=== PATIENT | male | born 1935 | race Caucasian/White ===

== ENCOUNTER 2017-11-05 14:34 | Inpatient (IN) | payer OTHER ==
[2017-11-02 03:22] VITALS: BMI 19.9
[2017-11-05] MEDS ORDERED: ULTRAM PO PRN (14:57)
[2017-11-05] MEDS ORDERED: NITROSTAT SL PRN (14:57)
[2017-11-05] MEDS ORDERED: ATIVAN PO PRN ×2 (14:57→21:00)
[2017-11-05] MEDS: COMBIVENT RESPIMAT INHAL SPRAY IH SCH ×2 (16:13→17:19)
--- NOTE | 2017-11-05 16:17 | RS.OTINEVL ---
Subjective - Patient information Date of Evaluation: 11/05/17 Date of Arrival on Unit: 11/05/17 Usual Living Arrangement: With Spouse Living Arrangement Comments: lives alone with , pt was walking with a quad cane at home. He really thinks he likes the rolling walker better. Pt has a house and his takes care of him. Medical History: Hypertension, COPD, Arthritis Medical History Comments:: Irregular Heart beat, Cyst removed from his throat, B cataracts, hx of kidney stones, spleenectomy, colon resection, TURP, Lung BX, Prostate, T& A. Chronic bronchitis, asthma, hypercholesterolemia Surgical History Comments:: TURP, Lung Bx, Prostate, T&A, Cyst removed from throat, Bilateral cataracts, spleenectomy Subjective Information/ Patient Comments:: "I get really short of breath." "My legs are getting weak." - Level of function Prior to this admission, the patient could do the following:: Partially Dependent Ambulation Abilities prior to this admission: Pt reports he has not been able to do much in the last year. Patient reports he gets too short of breath and his takes care of him. Current Level of Function: Partially Dependent Current Equipment Used at Home: Quad cane at home. Oxygen. Pain Assessment - Pain Pain Score: 0 Interventions - Objective Patient Orientation: Person, Place, Situation Current Interventions: IV's, Oxygen, Telemetry Observation: Pt looks very weak and would benefit from occupational therapy to increase his independence of self care. Interventions - ROM Right Upper Extremity AROM: WFL's Left Upper Extremity AROM: WFL's - Strength Right Upper Extremity Strength: Mild Weakness Left Upper Extremity Strength: Mild Weakness - Sensation Right Upper Extremity Sensation: Intact/Normal Left Upper Extremity Sensation: Intact/Normal Balance - Sitting Balance Static Sitting Balance: Fair Dynamic Sitting Balance: Fair - Standing Balance Static Standing Balance: Poor Dynamic Standing Balance: Poor ADL Skills - Self Feeding Self Feeding: Independent - Grooming Grooming: Min Assist - Bathing Bathing UE: Min Assist Bathing LE: Max Assist - Dressing Dressing UE: Min Assist Dressing LE: Max Assist - Toilet Management Toileting Management: Min Assist Functional Mobility - Bed Mobility Rolling R/L: Independent Scooting: Independent Supine to Sit: Supervision Sit to Supine: Supervision - Transfers Sit to Stand: CGA, Min Assist Stand to Sit: CGA Stand Pivot Transfers: Min Assist - Ambulation Weight Bearing Status: FWB Assistive Device Used: Standard Walker Assistance needed with Ambulation: Min Assist, 2 person assist Comments:: Pt has an IV pole and O2 tank. - Safety Awareness Safety Awareness: Fair UZMA INDEX SCORE: 56 Additional Treatment Performed - Additional units charged ADL: 15 - Time with patient Length of Evaluation: 15 Total treatment time: 30 Activities Do you enjoy playing games?: Yes Would you be interested in leaving your room for activities?: Yes Would you enjoy group activities?: Yes Do you have difficulty with your vision?: No What types of things do you enjoy doing? Any Hobbies?: Reading Patient Interests:: Reading Books/Magazines, Visiting/Socializing Patient Education Patient Education: Education of diagnosis, Home Exercise Program, Home Safety, Education of Plan of Care Teaching Recipient: Patient Teaching Methods: Discussion Assessment Problem List:: Decreased level of function, Requires training/education, Decreased safety/Risk of falls, Weakness Rehab Potential: Good Further Therapy Indicated?: Yes Candidate for Swing Bed for Therapy Services?: yes Evaluation Complexity: HISTORY: Medium, EXAM OF BODY SYSTEMS: Medium, CLINICAL DECISION MAKING: Medium Short Term Goals - Goals GOAL 1: Pt to tolerate dyn. Std. Balance for 10 minutes for self care. Goal to be met by: 11/12/17 GOAL 2: Pt to increase functional mobility CGA. Goal to be met by: 11/12/17 GOAL 3: Pt to increase BUE strength to 4/5. Goal to be met by: 11/12/17 Padded Products Inspector Trimmer Goals GOAL 1: Pt to tolerate dyn. Std. Balance for 15 minutes for self care. Goal to be met by: 11/17/17 GOAL 2: Pt to increase functional mobility Mod-I. Goal to be met by: 11/17/17 GOAL 3: Pt to increase BUE strength to 4+/5. Goal to be met by: 11/17/17 Plan Plan of Care: Therapeutic EX, Neuromuscular Re-Educ, Therapeutic Activity, Self- Care/Home Management Frequency of Treatment: 1-2 X day, as tolerated Duration of Treatment: 2 Weeks Anticipated Discharge Destination: Home Treatment Diagnosis (ICD 10 Codes): M62.81 Muscle weakness, Z74.0 Reduced mobility, Z74.1 Need for assistance with personal care. Has the Physician been added for Co-signature?: Yes
--- NOTE | 2017-11-05 16:40 | RS.PTINEVL ---
Subjective - Patient information Date of Evaluation: 11/05/17 Date of Arrival on Unit: 11/05/17 (acute care 11/02/17) Admitted From:: In-House Transfer Diagnosis: MEHNAZ pneumonia, COPD exacerbation Usual Living Arrangement: With Spouse Living Arrangement Comments: pt lives with , uses quad cane. Lives in home with 1-2 steps without rail Home Environment: House, Stairs (few), No rail Medical History: Hypertension, CVA/TIA, COPD, Arthritis, Cancer (prostate CA) Medical History Comments:: afib, sleep apnea, R hip fx 1986, renal stones, left ventricular hypertrophy, O2 at home LATEX ALLERGY?: No Surgical History: Knee Replacement Surgical History Comments:: TURP, spleenectomy Medications: see chart Subjective Information/ Patient Comments:: pt states that he is doing better, " I need to get up and do something and get out of this bed." - Level of function Prior to this admission, the patient could do the following:: Partially Dependent Ambulation Current Level of Function: Partially Dependent Current Equipment Used at Home: Quad cane at home. Oxygen. Interventions - Objective Patient Orientation: Person, Place, Situation Current Interventions: IV's, Oxygen, Telemetry Observation: 2 liters O2 Range of Motion - ROM Right Upper Extremity AROM: WFL's Left Upper Extremity AROM: WFL's Right Lower Extremity AROM: WFL's Left Lower Extremity AROM: WFL's Muscle Strength - Muscle Strength Right Upper Extremity Strength: Mild Weakness (grossly 4-/5) Left Upper Extremity Strength: Mild Weakness (grossly 4-/5) Right Lower Extremity Strength: Mild Weakness (hip flex 4-/5, knee flex/ext 4/5 , ankle dF/PF 4/5) Left Lower Extremity Strength: Mild Weakness (hip flex 4-/5, knee flex/ext 4/5, ankle dF/PF 4/5) Sensation - Sensation Right Upper Extremity Sensation: Intact/Normal Left Upper Extremity Sensation: Intact/Normal Right Lower Extremity Sensation: Intact/Normal Left Lower Extremity Sensation: Intact/Normal Palpation Palpation Findings: None/Normal Balance - Sitting Balance and Reactions Static Sitting Balance: Good Dynamic Sitting Balance: Fair Sitting Equilibrium Reactions: Delayed Left, Delayed Right Sitting Protective Reactions: Delayed Left, Delayed Right - Standing Balance and Reactions Static Standing Balance: Poor Dynamic Standing Balance: Poor Standing Equilibrium Reactions: Delayed Left, Delayed Right Standing Protective Reactions: Delayed Left, Delayed Right Functional Mobility - Bed Mobility Rolling R/L: CGA Scooting: CGA Supine to Sit: CGA Sit to Supine: CGA - Transfers Sit to Stand: CGA Stand to Sit: CGA - Safety Awareness Safety Awareness: Good UZMA INDEX SCORE: 56 Ambulation - Ambulation Assistive Device Used: Rolling Walker Orthotic/Prosthetic Device: No Distance: 80ft Assistance needed with Ambulation: CGA, 1 person assist Quality of Ambulation: pt amb with CGA x 1 +1 for IV and O2 Gait Deviations: Forward posture, Short stride Ambulation Comments: pt amb with flexed posture, decreased step length, requires verbal cues for PLB Factors Affecting Ambulation: Decreased Balance, Breathing/O2 Saturation, Weakness, Decreased Safety, Limited Endurance Treatment time - Units charged Gait trainin - Time with patient Length of Evaluation: 18 Total treatment time: 29 Patient Education - Education Patient Education: Home Exercise Program, Education of Plan of Care Teaching Recipient: Patient Teaching Methods: Discussion Comments: discussion with patient regarding POC Assessment - Assessment Problem List:: Decreased level of function, Requires training/education, Decreased safety/Risk of falls, Weakness Rehab Potential: Good Further Therapy Indicated?: Yes Candidate for Swing Bed for Therapy Services?: pt is swing bed Evaluation Complexity: HISTORY: Medium (COPD, CVA, HTN, AFIB), EXAM OF BODY SYSTEMS: Medium (gait, strength, balance, posture), CLINICAL PRESENTATION: Medium, CLINICAL DECISION MAKING: Medium Short Term Goals GOAL #1: pt demonstrate independence with bed mobility Goal to be met by: 11/10/17 GOAL #2: Transfer sup to/from sit SBA sit to/from stand CGA Goal to be met by: 11/10/17 GOAL #3: pt amb with rwx 140ft with CGA and O2 with no LOB Goal to be met by: 11/10/17 GOAL #4: BLE strength improved to 4 to 4+/5 Goal to be met by: 11/11/17 Master Cosmetologist Goals GOAL #1: pt transfer sup to/from sit to/from stand independently Goal to be met by: 11/14/17 GOAL #2: pt amb functional household distances with SBA with no LOB Goal to be met by: 11/14/17 GOAL #3: pt demonstrate improved balance as noted by no LOB with gait Goal to be met by: 11/14/17 Plan Plan of Care: Therapeutic EX, Therapeutic Activity Other:: gait training Frequency of Treatment: 1-2 X day, as tolerated Duration of Treatment: 10 days Anticipated Discharge Destination: Home Treatment Diagnosis (ICD 10 Codes): R26.2 difficulty walking. M62.81 muscle weakness Has the Physician been added for Co-signature?: Yes
[2017-11-05] MEDS: PULMICORT 0.5 MG/2 ML NEB SCH (16:55)
[2017-11-05] MEDS ORDERED: COUMADIN PO SCH (17:00)
[2017-11-05] MEDS: PREDNISONE PO SCH (17:19)
[2017-11-05] MEDS ORDERED: PROAIR HFA IH PRN (19:44)
[2017-11-05] MEDS: SYMBICORT 160-4.5 MCG INHALER IH SCH ×2 (20:28→20:29)
[2017-11-05] MEDS: DOXY-100 100 MG in SODIUM CHLORIDE 100 ML IV SCH (20:28)
[2017-11-05] MEDS: ZOCOR PO SCH (20:28)
[2017-11-05] MEDS: SODIUM CHLORIDE 0.9%-KCL 20 MEQ 1,000 ML IV SCH (21:16)
[2017-11-05] MEDS: ROCEPHIN 1 GM in SODIUM CHLORIDE 50 ML IV SCH (21:56)
[2017-11-06] MEDS: PULMICORT 0.5 MG/2 ML NEB SCH ×2 (05:30→16:58)
[2017-11-06] MEDS ORDERED: COMBIVENT RESPIMAT INHAL SPRAY IH PRN (08:33)
[2017-11-06] MEDS ORDERED: DIGOXIN PO SCH (09:00)
[2017-11-06] MEDS: SYMBICORT 160-4.5 MCG INHALER IH SCH (09:17)
[2017-11-06] MEDS: HYZAAR 50-12.5 MG TAB PO SCH (09:18)
[2017-11-06] MEDS: K-DUR PO SCH (09:18)
[2017-11-06] MEDS: LANOXIN PO SCH (09:18)
[2017-11-06] MEDS: DOXY-100 100 MG in SODIUM CHLORIDE 100 ML IV SCH ×2 (09:18→20:07)
[2017-11-06] MEDS: PREDNISONE PO SCH ×3 (09:24→17:14)
[2017-11-06] MEDS ORDERED: ALBUTEROL 0.083% NEB NEB SCH (12:00)
[2017-11-06] MEDS: COMBIVENT RESPIMAT INHAL SPRAY IH SCH ×2 (15:06→20:07)
[2017-11-06] MEDS ORDERED: COUMADIN PO SCH ×2 (17:00)
[2017-11-06] MEDS: COUMADIN PO SCH (17:14)
[2017-11-06] MEDS: ZOCOR PO SCH (20:07)
[2017-11-06] MEDS: ROCEPHIN 1 GM in SODIUM CHLORIDE 50 ML IV SCH (22:38)
[2017-11-07] MEDS: SODIUM CHLORIDE 0.9%-KCL 20 MEQ 1,000 ML IV SCH (03:21)
[2017-11-07] MEDS: PULMICORT 0.5 MG/2 ML NEB SCH ×2 (04:50→17:50)
[2017-11-07] MEDS: ALBUTEROL 0.083% NEB NEB SCH (04:50)
[2017-11-07] MEDS: COMBIVENT RESPIMAT INHAL SPRAY IH SCH ×3 (08:51→20:30)
[2017-11-07] MEDS: DOXY-100 100 MG in SODIUM CHLORIDE 100 ML IV SCH ×2 (08:53→21:23)
[2017-11-07] MEDS: HYZAAR 50-12.5 MG TAB PO SCH (08:53)
[2017-11-07] MEDS: LANOXIN PO SCH (08:53)
[2017-11-07] MEDS: K-DUR PO SCH (08:54)
[2017-11-07] MEDS: PREDNISONE PO SCH ×3 (08:54→17:02)
--- NOTE | 2017-11-07 09:41 | PCM.PROG ---
Attending Provider: ATTENDING PROVIDER: Dr. AILEEN GABRIEL This patient is seen with Nelly Jimenez, Nurse Practitioner. DATE OF SERVICE: 11/06/17 SUBJECTIVE: This 82 year old WHITE/ M was hospitalized 11/05/17. The patient is wheezing worse today. He is resting comfortably. I will make Albuterol nebs q.6hr. PT is helping. REVIEW OF SYSTEMS: CONSTITUTIONAL: Weakness. No night sweats. No malaise, lethargy. No fever or chills. HEENT: Eyes: No visual changes. No eye pain. No eye discharge. ENT: No runny nose. No epistaxis. No sinus pain. No odynophagia. No congestion. RESPIRATORY: No cough, no congestion. No hemoptysis. Positive for shortness of breath and wheezing. CARDIOVASCULAR: No angina symptoms. No CHF symptoms. No atypical chest pain for CAD. No palpitations. No orthopnea.. GASTROINTESTINAL: No abdominal pain. No nausea or vomiting. No diarrhea or constipation. No hematemesis. No hematochezia. GENITOURINARY: No urgency. No frequency. No dysuria. No hematuria. No obstructive symptoms. No discharge. No pain. No significant abnormal bleeding. MUSCULOSKELETAL: No musculoskeletal pain; no joint swelling. NEUROLOGICAL: Awake, alert, oriented to time, place and person. No headache. No neck pain. No syncope. No seizures. No dizziness. PSYCHIATRIC: Not anxious. No depression. No suicidal thoughts. No homicidal thoughts. SKIN: No rash. No lesions. No wounds. ENDOCRINE: No unexplained weight loss. No weight gain. HEMATOLOGIC/LYMPHATIC: No anemia. No purpura. No petechiae. No prolonged or excessive bleeding. No palpable lymph nodes. PHYSICAL EXAMINATION: GENERAL: The patient is awake, alert and oriented, lying in bed in no distress. VITAL SIGNS: Temperature 97.6 F, Pulse 74, Respiratory Rate 18, BP 137/82, Pulse Ox 100% HEENT: Head normocephalic, atraumatic. Eyes: Extraocular muscles are intact. Pupils are equal, round and reactive to light and accommodation. Ears: No lesions. Nose appeared normal. Throat: No exudate or erythema. NECK: Supple. No JVD, no carotid bruit. No lymphadenopathy or thyromegaly. LUNGS: Diminished breath sounds bilaterally. Bilateral inspiratory and expiratory wheeze. Percussion note normal. Chest symmetrical. HEART: S1, S2, no S3. No murmurs. No cyanosis or clubbing. No ascites. Pulses: Dorsalis pedis and posterior tibial pulses +1 to +2 both sides. ABDOMEN: Soft. Non-tender. Bowel sounds active. No CVA tenderness. No mass felt. EXTREMITIES: No edema. Full range of motion of all extremities, equal. NEUROLOGIC: No focal deficit. Cranial nerves II through XII are grossly intact. No headache, no double vision or headache. SKIN: Not dry. Intact. Turgor-normal. LYMPHATIC: No palpable lymph nodes/no lymphedema. MUSCULOSKELETAL: Normal joints with no swelling. Muscle tone is normal. LAB REVIEW: 11/06/17 04:15 11/06/17 04:15 11/06/17 04:15: Sodium 133 L, Potassium 3.8, Chloride 96 L, Carbon Dioxide 28, Anion Gap 12.8, BUN 15, Creatinine 0.64, Estimated GFR (MDRD) 120.00, BUN/ Creatinine Ratio 23.43, Glucose 75 L, Calcium 8.6, Total Bilirubin 0.5, AST 25, ALT 29, Alkaline Phosphatase 43 L, Total Protein 5.4 L, Albumin 2.8 L, Globulin 2.6, Albumin/Globulin Ratio 1.08 11/06/17 04:15: PT 23.0 H D, INR 2.36 11/06/17 04:15: WBC 8.93, RBC 3.57 L, Hgb 11.1 L, Hct 32.1 L, MCV 89.9, MCH 31.1 H, MCHC 34.6, RDW Coeff of Tessa 14.4, Plt Count 231, Immature Gran % (Auto) 0.4, Neut % (Auto) 77.0, Lymph % (Auto) 11.3, Wilkin % (Auto) 11.2 H, Eos % (Auto ) 0.0, Baso % (Auto) 0.1, Immature Gran # (Auto) 0.0, Neut # (Auto) 6.9, Lymph # (Auto) 1.0, Wilkin # (Auto) 1.0, Eos # (Auto) 0.0, Baso # (Auto) 0.0 ASSESSMENT: 1. LEFT UPPER LOBE PNEUMONIA VS CHRONIC CAVITARY LESION 2. SHORTNESS OF BREATH, SEVERE, OXYGEN DEPENDENT 3. HYPOKALEMIA 4. ATRIAL FIBRILLATION 5. SEVERE COPD 6. SMOKER 7. GENERALIZED WEAKNESS PLAN: 1. Combivent t.i.d. p.r.n. 2. Change Prednisone to 20 mg t.i.d. 3. Restart Coumadin 2 mg tonight 4. Alubterol q.6hr Sancho nebs Plan and coordination of the patient's care discussed in the presence of Biometric Technician and nurse. CONDITION: Stable SCRIBED BY: VIRAL JOHNSON Librarian Specialist scribed while in presence of service performed by Dr. Gabriel/Nelly Jimenez APRN on 11/06/17 ([id number])
[2017-11-07] MEDS ORDERED: COUMADIN PO SCH (17:00)
[2017-11-07] MEDS: COUMADIN PO SCH (17:02)
[2017-11-07] MEDS: ROCEPHIN 1 GM in SODIUM CHLORIDE 50 ML IV SCH (20:30)
[2017-11-07] MEDS: ZOCOR PO SCH (20:30)
[2017-11-08] MEDS: PULMICORT 0.5 MG/2 ML NEB SCH ×2 (04:48→17:01)
[2017-11-08] MEDS: ALBUTEROL 0.083% NEB NEB SCH (04:48)
[2017-11-08] MEDS: SODIUM CHLORIDE 0.9%-KCL 20 MEQ 1,000 ML IV SCH (05:54)
[2017-11-08] MEDS: K-DUR PO SCH (08:01)
[2017-11-08] MEDS: LANOXIN PO SCH (08:01)
[2017-11-08] MEDS: DOXY-100 100 MG in SODIUM CHLORIDE 100 ML IV SCH ×2 (08:01→21:34)
[2017-11-08] MEDS: COMBIVENT RESPIMAT INHAL SPRAY IH SCH ×3 (08:01→20:35)
[2017-11-08] MEDS: HYZAAR 50-12.5 MG TAB PO SCH (08:01)
[2017-11-08] MEDS: PREDNISONE PO SCH ×2 (08:01→16:33)
--- NOTE | 2017-11-08 08:45 | PCM.PROG ---
Attending Provider: ATTENDING PROVIDER: Dr. AILEEN GABRIEL This patient is seen with Nelly Jimenez, Nurse Practitioner. DATE OF SERVICE: 11/08/17 SUBJECTIVE: This 82 year old WHITE/ M was hospitalized 11/05/17. The patient is lying in bed, alert. Breathing is significantly improved. He feels the patient has been helping him. He feels weak. He is scheduled for repeat chest x-ray today. REVIEW OF SYSTEMS: CONSTITUTIONAL: Weakness. No night sweats. No malaise, lethargy. No fever or chills. HEENT: Eyes: No visual changes. No eye pain. No eye discharge. ENT: No runny nose. No epistaxis. No sinus pain. No odynophagia. No congestion. RESPIRATORY: No cough, no congestion. No hemoptysis. Shortness of breath. CARDIOVASCULAR: No angina symptoms. No CHF symptoms. No atypical chest pain for CAD. No palpitations. No orthopnea.. GASTROINTESTINAL: No abdominal pain. No nausea or vomiting. No diarrhea or constipation. No hematemesis. No hematochezia. GENITOURINARY: No urgency. No frequency. No dysuria. No hematuria. No obstructive symptoms. No discharge. No pain. No significant abnormal bleeding. MUSCULOSKELETAL: No musculoskeletal pain; no joint swelling. NEUROLOGICAL: Awake, alert, oriented to time, place and person. No headache. No neck pain. No syncope. No seizures. No dizziness. PSYCHIATRIC: Not anxious. No depression. No suicidal thoughts. No homicidal thoughts. SKIN: No rash. No lesions. No wounds. ENDOCRINE: No unexplained weight loss. No weight gain. HEMATOLOGIC/LYMPHATIC: No anemia. No purpura. No petechiae. No prolonged or excessive bleeding. No palpable lymph nodes. PHYSICAL EXAMINATION: GENERAL: The patient is awake, alert and oriented, lying in bed in no distress. VITAL SIGNS: Temperature 98.7 F, Pulse 72, Respiratory Rate 16, BP 147/89, Pulse Ox 100% HEENT: Head normocephalic, atraumatic. Eyes: Extraocular muscles are intact. Pupils are equal, round and reactive to light and accommodation. Ears: No lesions. Nose appeared normal. Throat: No exudate or erythema. NECK: Supple. No JVD, no carotid bruit. No lymphadenopathy or thyromegaly. LUNGS: Diminished breath sounds with fait expiratory wheeze. Percussion note normal. Chest symmetrical. HEART: S1, S2, no S3. No murmurs. No cyanosis or clubbing. No ascites. Pulses: Dorsalis pedis and posterior tibial pulses +1 to +2 both sides. ABDOMEN: Soft. Non-tender. Bowel sounds active. No CVA tenderness. No mass felt. EXTREMITIES: No edema. Full range of motion of all extremities, equal. NEUROLOGIC: No focal deficit. Cranial nerves II through XII are grossly intact. No headache, no double vision or headache. SKIN: Not dry. Intact. Turgor-normal. LYMPHATIC: No palpable lymph nodes/no lymphedema. MUSCULOSKELETAL: Normal joints with no swelling. Muscle tone is normal. LAB REVIEW: 11/07/17 04:30 11/07/17 04:30 11/08/17 04:30: PT 16.4 H, INR 1.66 11/07/17 10:55: Total Creatine Kinase 63, Troponin I 0.0110 11/05/17 20:09: Carcinoembryonic Ag 4.7 ASSESSMENT: 1. LEFT UPPER LOBE PNEUMONIA VS CHRONIC CAVITARY LESION 2. SHORTNESS OF BREATH, SEVERE, OXYGEN DEPENDENT, IMPROVED 3. HYPOKALEMIA,. RESOLVED 4. ATRIAL FIBRILLATION 5. SEVERE COPD 6. SMOKER 7. GENERALIZED WEAKNESS PLAN: 1. Saline Lock 2. D/C IV fluids 3. Decrease Prednisone to b.i.d. 4. Extra 2 mg of Coumadin today 5. Anticipate discharge tomorrow Plan and coordination of the patient's care discussed in the presence of Concrete Batch Plant Operator and nurse. CONDITION: Stable SCRIBED BY: Wilberto HUYNH scribed while in presence of service performed by Dr. Gabriel/Nelly Jimenez APRN on 11/08/17 ([id number])
--- NOTE | 2017-11-08 15:33 | DI ---
EXAM: Chest one view HISTORY: Shortness of air COMPARISON: 11/03/2017 TECHNIQUE: Single view of the chest was performed FINDINGS: There is emphysematous change. There is left upper lobe opacity, corresponding to the cavi tary lesion described on CT 11/03/2017. Suture line in the right lung. No pleural effusion or pneum othorax. Heart normal in size. Mediastinal contour unchanged and atherosclerosis. Scarring in the right perihilar region. IMPRESSION: Emphysema. Opacity in the left lung apex corresponding to the cavitary lesion described on CT chest 11/02/2017.
[2017-11-08] MEDS: COUMADIN PO SCH (16:34)
[2017-11-08] MEDS ORDERED: COUMADIN PO ONE ×2 (17:00→17:30)
[2017-11-08] MEDS: ZOCOR PO SCH (20:35)
[2017-11-08] MEDS: ROCEPHIN 1 GM in SODIUM CHLORIDE 50 ML IV SCH (20:35)
[2017-11-09] MEDS: ALBUTEROL 0.083% NEB NEB SCH (04:43)
[2017-11-09] MEDS: PULMICORT 0.5 MG/2 ML NEB SCH (04:43)
[2017-11-09 06:24] VITALS: TEMP 98.7
[2017-11-09] MEDS: LANOXIN PO SCH (08:46)
[2017-11-09] MEDS: DOXY-100 100 MG in SODIUM CHLORIDE 100 ML IV SCH (08:46)
[2017-11-09] MEDS: COMBIVENT RESPIMAT INHAL SPRAY IH SCH (08:46)
[2017-11-09] MEDS ORDERED: LANOXIN ONE (08:58)
[2017-11-09] MEDS: HYZAAR 50-12.5 MG TAB PO SCH (09:00)
[2017-11-09] MEDS: K-DUR PO SCH (09:01)
[2017-11-09] MEDS: PREDNISONE PO SCH (09:01)
[2017-11-09] MEDS ORDERED: LANOXIN IVP STA (09:02)
[2017-11-09] MEDS ORDERED: CARDIZEM INJ ONE (11:48)
[2017-11-09] MEDS ORDERED: CARDIZEM INJ IVP STA ×2 (11:51→11:54)
[2017-11-09] MEDS ORDERED: LASIX IVP STA ×2 (11:56→12:13)
[2017-11-09] MEDS ORDERED: CARDIZEM INJ 125 MG in SODIUM CHLORIDE 100 ML IV SCH (12:00)
--- NOTE | 2017-11-09 12:29 | DI ---
EXAM: Single frontal view of the chest HISTORY: Shortness of breath. COMPARISON: Chest x-ray 11/08/2017 and multiple priors including CT chest 11/02/2017 FINDINGS: Cardiomediastinal silhouette is unremarkable with atherosclerotic disease of the aorta. Th e left upper lobe cavitary lesion on prior CT 11/02/2017 is unchanged with mild thickening of ground- glass in the left upper lobe. There is mild hyperinflation and emphysematous disease. There is no a cute consolidation. The osseous structures are unremarkable. IMPRESSION: 1. Minimal change in ground-glass in the left upper lobe consistent with CT chest. 2. Hyperinflation consistent with chronic obstructive pulmonary disease.
[2017-11-09] MEDS ORDERED: XOPENEX 1.25 MG NEB PRN (12:44)
[2017-11-09 14:18] VITALS: BP 90/52
[2017-11-10] MEDS ORDERED: CARDIZEM PO ONE (12:07)
== END 2017-11-09 14:15 | disposition other institution (70) | DRG 194 ==
LOC: MEDSURG B 14:34
PROVIDERS: ADMIT General Practice; ATTEND General Practice
DX: J18.9 Pneumonia, unspecified organism (principal); J44.1 Chronic obstructive pulmonary disease with (acute) exacerbation; E87.6 Hypokalemia; E78.5 Hyperlipidemia, unspecified; I25.2 Old myocardial infarction; I10 Essential (primary) hypertension; I51.7 Cardiomegaly; I71.2 Thoracic aortic aneurysm, without rupture; R06.02 Shortness of breath; R91.8 Other nonspecific abnormal finding of lung field; R53.1 Weakness; M19.90 Unspecified osteoarthritis, unspecified site; M40.209 Unspecified kyphosis, site unspecified; G47.30 Sleep apnea, unspecified; F17.210 Nicotine dependence, cigarettes, uncomplicated; Z99.81 Dependence on supplemental oxygen
CPT/HCPCS: 36415; 80053; 82378; 82550; 84484; 85025; 85610; 87070; 93005; 93010; 94640; 97802

== ENCOUNTER 2017-11-09 15:29 | Inpatient (IN) | payer OTHER ==
[~2017-11-09 15:29] MED LIST: CARDIZEM INJ 125 MG in SODIUM CHLORIDE 100 ML IV SCH
[2017-11-09] MEDS: CARDIZEM INJ 125 MG in SODIUM CHLORIDE 100 ML IV SCH (15:29)
[2017-11-09] MEDS ORDERED: ULTRAM PO PRN (15:40)
[2017-11-09] MEDS ORDERED: ATIVAN PO PRN (15:40)
[2017-11-09] MEDS ORDERED: NITROSTAT SL PRN (15:40)
[2017-11-09] MEDS: PREDNISONE PO SCH (16:49)
[2017-11-09] MEDS: COUMADIN PO SCH (16:50)
[2017-11-09] MEDS: ROCEPHIN 1 GM in SODIUM CHLORIDE 50 ML IV SCH (21:12)
[2017-11-09] MEDS: ZOCOR PO SCH (21:13)
[2017-11-09] MEDS: DOXY-100 100 MG in SODIUM CHLORIDE 100 ML IV SCH (22:20)
[2017-11-10] MEDS: CARDIZEM INJ 125 MG in SODIUM CHLORIDE 100 ML IV SCH (03:08)
[2017-11-10] MEDS: XOPENEX 1.25 MG NEB PRN (05:00)
[2017-11-10] MEDS: PREDNISONE PO SCH ×2 (08:51→16:46)
[2017-11-10] MEDS: K-DUR PO SCH (08:51)
[2017-11-10] MEDS: DOXY-100 100 MG in SODIUM CHLORIDE 100 ML IV SCH ×2 (08:51→20:48)
[2017-11-10] MEDS: LANOXIN PO SCH (08:51)
[2017-11-10] MEDS ORDERED: DIGOXIN PO SCH (09:00)
[2017-11-10] MEDS: CARDIZEM PO SCH ×2 (11:27→21:34)
[2017-11-10] MEDS: COMBIVENT RESPIMAT INHAL SPRAY IH PRN (11:28)
[2017-11-10] MEDS: COUMADIN PO SCH (16:46)
[2017-11-10] MEDS: ZOCOR PO SCH (21:34)
[2017-11-10] MEDS: ROCEPHIN 1 GM in SODIUM CHLORIDE 50 ML IV SCH (23:33)
[2017-11-11] MEDS: CARDIZEM PO SCH ×2 (08:26→20:43)
[2017-11-11] MEDS: K-DUR PO SCH (08:26)
[2017-11-11] MEDS: PREDNISONE PO SCH ×2 (08:26→16:44)
[2017-11-11] MEDS: DOXY-100 100 MG in SODIUM CHLORIDE 100 ML IV SCH ×2 (08:26→20:43)
[2017-11-11] MEDS: LANOXIN PO SCH (08:27)
[2017-11-11] MEDS: XOPENEX 1.25 MG NEB PRN (13:41)
[2017-11-11] MEDS: COMBIVENT RESPIMAT INHAL SPRAY IH PRN (16:44)
[2017-11-11] MEDS: COUMADIN PO SCH (16:44)
[2017-11-11] MEDS: ZOCOR PO SCH (20:44)
[2017-11-11] MEDS: ROCEPHIN 1 GM in SODIUM CHLORIDE 50 ML IV SCH (21:53)
[2017-11-12] MEDS: COMBIVENT RESPIMAT INHAL SPRAY IH PRN ×3 (06:24→21:10)
[2017-11-12] MEDS ORDERED: DOXYCYCLINE HYCLATE PO SCH (09:00)
--- NOTE | 2017-11-12 09:11 | PCM.PROG ---
Attending Provider: ATTENDING PROVIDER: Dr. AILEEN GABRIEL This patient is seen with Nelly Jimenez, Nurse Practitioner. DATE OF SERVICE: 11/12/17 SUBJECTIVE: This 82 year old WHITE/ M was hospitalized 11/09/17. The patient is lying in bed, alert. He is resting comfortably. Heart rate controlled. He is no longer wheezing. Shortness of breath resolved other than usual oxygen dependence. REVIEW OF SYSTEMS: CONSTITUTIONAL: Weakness. No night sweats. No malaise, lethargy. No fever or chills. HEENT: Eyes: No visual changes. No eye pain. No eye discharge. ENT: No runny nose. No epistaxis. No sinus pain. No odynophagia. No congestion. RESPIRATORY: Positive for shortness of breath. No cough, no congestion. No hemoptysis. CARDIOVASCULAR: No angina symptoms. No CHF symptoms. No atypical chest pain for CAD. No palpitations. No orthopnea.. GASTROINTESTINAL: No abdominal pain. No nausea or vomiting. No diarrhea or constipation. No hematemesis. No hematochezia. GENITOURINARY: No urgency. No frequency. No dysuria. No hematuria. No obstructive symptoms. No discharge. No pain. No significant abnormal bleeding. MUSCULOSKELETAL: No musculoskeletal pain; no joint swelling. NEUROLOGICAL: Awake, alert, oriented to time, place and person. No headache. No neck pain. No syncope. No seizures. No dizziness. PSYCHIATRIC: Not anxious. No depression. No suicidal thoughts. No homicidal thoughts. SKIN: No rash. No lesions. No wounds. ENDOCRINE: No unexplained weight loss. No weight gain. HEMATOLOGIC/LYMPHATIC: No anemia. No purpura. No petechiae. No prolonged or excessive bleeding. No palpable lymph nodes. PHYSICAL EXAMINATION: GENERAL: The patient is awake, alert and oriented, lying in bed in no distress. VITAL SIGNS: Temperature 97.5 F, Pulse 72, Respiratory Rate 21, BP 121/72, Pulse Ox 90% HEENT: Head normocephalic, atraumatic. Eyes: Extraocular muscles are intact. Pupils are equal, round and reactive to light and accommodation. Ears: No lesions. Nose appeared normal. Throat: No exudate or erythema. NECK: Supple. No JVD, no carotid bruit. No lymphadenopathy or thyromegaly. LUNGS: Diminished breath sounds, no wheeze. Clear to auscultation. Percussion note normal. Chest symmetrical. HEART: Regular heart rate. S1, S2, no S3. No murmurs. No cyanosis or clubbing. No ascites. Pulses: Dorsalis pedis and posterior tibial pulses +1 to +2 both sides. ABDOMEN: Soft. Non-tender. Bowel sounds active. No CVA tenderness. No mass felt. EXTREMITIES: No edema. Full range of motion of all extremities, equal. NEUROLOGIC: No focal deficit. Cranial nerves II through XII are grossly intact. No headache, no double vision or headache. SKIN: Not dry. Intact. Turgor-normal. LYMPHATIC: No palpable lymph nodes/no lymphedema. MUSCULOSKELETAL: Normal joints with no swelling. Muscle tone is normal. LAB REVIEW: 11/12/17 07:10 11/11/17 05:30 11/12/17 07:10: WBC 9.83, RBC 3.56 L, Hgb 11.1 L, Hct 31.3 L, MCV 87.9, MCH 31.2 H, MCHC 35.5 H, RDW Coeff of Tessa 14.2, Plt Count 240, Immature Gran % (Auto ) 0.7, Neut % (Auto) 70.9, Lymph % (Auto) 15.4, [place] % (Auto) 12.6 H, Eos % ( Auto) 0.3, Baso % (Auto) 0.1, Immature Gran # (Auto) 0.1, Neut # (Auto) 7.0 H, Lymph # (Auto) 1.5, [place] # (Auto) 1.2, Eos # (Auto) 0.0, Baso # (Auto) 0.0 ASSESSMENT: 1. LEFT UPPER LOBE PNEUMONIA VS CHRONIC CAVITARY LESION 2. SHORTNESS OF BREATH, SEVERE, OXYGEN DEPENDENT, IMPROVED 3. HYPOKALEMIA,. RESOLVED 4. ATRIAL FIBRILLATION 5. SEVERE COPD 6. SMOKER 7. GENERALIZED WEAKNESS PLAN: 1. Repeat CBC, CMP 2. D/C IV Doxycycline and start p.o. 100 mg b.i.d. 3. Decrease Prednisone to 20 mg one a day Plan and coordination of the patient's care discussed in the presence of Sap Bw Developer and nurse. CONDITION: Stable SCRIBED BY: Wilberto HUYNH scribed while in presence of service performed by Dr. Gabriel/Nelly Jimenez APRN on 11/12/17 ([id number])
[2017-11-12] MEDS: CARDIZEM PO SCH ×2 (09:42→21:11)
[2017-11-12] MEDS: K-DUR PO SCH (09:42)
[2017-11-12] MEDS: PREDNISONE PO SCH ×2 (09:42→10:28)
[2017-11-12] MEDS: LANOXIN PO SCH (09:42)
[2017-11-12] MEDS: DOXYCYCLINE HYCLATE PO SCH ×2 (09:42→21:12)
--- NOTE | 2017-11-12 14:47 | HP ---
DATE OF SERVICE: 11/09/17 REASON FOR HOSPITALIZATION/HISTORY OF PRESENT ILLNESS: 82 year old white male was placed on swing bed after being admitted with history of bronchitis and pneumonia. The patient also has lesion on the lung likely C of the lung. Previous pneumonectomy for fungal infection. The patient has stopped going to the pulmonary physician. He is refusing to go. The patient developed tachy arrhythmias what it looks like atrial fibrillation with rapid ventricular response with rate of 150-160 per minute. The patient's systolic blood pressure was 138. The patient was then started on IV Cardizem drip intermittently. The heart rate slowed down and showed multifocal atrial tachycardia which is likely from severe COPD with poor prognosis. The patient is DNI. Discussed with the family members and also with the patient. The patient was then hospitalized and discharged from the swing bed because of tachyarrhythmias. 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 Weakness and fatigue. No fever or chills. HEENT: Eyes: No visual changes. No eye pain. No eye discharge. ENT: No runny nose. No epistaxis. No sinus pain. No sore throat. No odynophagia. No ear pain. No congestion. RESPIRATORY: Mild cough, no congestion. No hemoptysis. Mild shortness of breath. CARDIOVASCULAR: No angina symptoms. No CHF symptoms. No atypical chest pain for CAD. Palpitations but not that bad. No PND. No orthopnea. GASTROINTESTINAL: No abdominal pain. No nausea or vomiting. No diarrhea or constipation. No hematemesis. No hematochezia. GENITOURINARY: No urgency. No frequency. No dysuria. No hematuria. No obstructive symptoms. No discharge. No pain. No significant abnormal bleeding. MUSCULOSKELETAL: No musculoskeletal pain. No joint swelling. No arthritis. NEUROLOGICAL: No headache. No neck pain. No syncope. No seizures. No dizziness. PSYCHIATRIC: Not anxious. No depression. No suicidal thoughts. No homicidal thoughts. SKIN: No rash. No lesions. No wounds. ENDOCRINE: No unexplained weight loss. No weight gain. HEMATOLOGIC/LYMPHATIC: No anemia. No purpura. No petechiae. No prolonged or excessive bleeding. No palpable lymph nodes. PERSONAL/FAMILY/SOCIAL HISTORY: The patient is current everyday heavy smoker, no alcohol or illicit drug use. He lives at home with his . MEDICATIONS: Xopenex Brovana Ultram Combivent inhaler Lanoxin 0.125mg PO daily Coumadin 3mg PO daily Zocor 40mg PO bedtime Losartan has been held because of the patient's hypotension Nitrostat PRN Ativan PRN ALLERGIES: Iodinated Contrast-Oral and IV dye Shellfish derived PHYSICAL EXAMINATION: GENERAL: The patient is oriented to time ,place and person and hard of hearing. VITAL SIGNS: Temperature 98.4, pulse 140 per minute, respiratory rate 22, blood pressure 134/86. HEENT: Head normocephalic, atraumatic. Eyes: Extraocular muscles are intact. Pupils are equal, round and reactive to light and accommodation. Ears: No lesions. Nose appeared normal. Throat: No exudate or erythema. Looks somewhat pale. NECK: Supple. No JVP, no carotid bruit. No lymphadenopathy or thyromegaly. LUNGS:Decreased breath sounds bilaterally. Severe diminished breath sounds with mild wheeze expiratory. Percussion note normal. Chest symmetrical. HEART: S1, S2, no S3. No murmurs. Tachy arrhythmias. No cyanosis. Mild clubbing. No ascites. Pulses: Dorsalis pedis and posterior tibial pulses +1 bilaterally. ABDOMEN: Soft. Nontender. Bowel sounds active. No CVA tenderness. No mass felt. EXTREMITIES: No edema. Full range of motion of all extremities, equal. NEUROLOGIC: No focal deficit. Cranial nerves II through XII are grossly intact. No headache, no double vision or headache. SKIN: Not dry. Intact. Turgor - normal. LYMPHATIC: No palpable lymph nodes/no lymphedema. MUSCULOSKELETAL: Normal joints with no swelling. Muscle tone is normal. LABS: EKG right bundle branch block. Atrial fibrillation with rapid ventricular response, no acute changes. ASSESSMENT: 1. Atrial fibrillation with rapid ventricular response intermittently with multifocal atrial tachycardia 2. COPD Exacerbation 3. Left upper lobe pneumonia 4. Dyslipidemia 5. Hypertension 6. Osteoarthritis 7. Kyphosis 8. Lung lesion likely probably cancer PLAN: 1. The patient was given 0.125mg PO Lanoxin 2. The patient was given 0.25mg of Lanoxin IV with no much response 3. IV Cardizem 5mg given 4. Cardizem 5mg IV repeated after 10 minutes 5. IV Cardizem started at 5mcg later on turned up to 10mcg and then was reduced to 5mcg and he is going to be weaned off as the blood pressure dropped to 85 or 90 systolic 6. The patient is DNI 7. Change Albuterol to Xopenex 8. Continue the rest of the medications as before 9. Will also continue steroids PROGNOSIS is poor and condition is Critical. The patient's and the patient' s 's daughter they were both informed about, they were present in the office as the came for the office visit. The patient was rechecked again later on around 4:00pm and the patient's condition is stable with the heart rate of 80-90 per minute, seems to be sinus rhythm. Monitor which was not quite clear. Blood pressure had been around 90 systolic. CONDITION: Stable. PROGNOSIS: Poor TIME SPENT: More than 70 minutes. PRITI
--- NOTE | 2017-11-12 14:55 | PN ---
DATE OF SERVICE: 11/11/17 SUBJECTIVE: The patient is doing well with sinus rhythm with PAC's. No atrial fibrillation. Cardiovascular status stable. No evidence of CHF. REVIEW OF SYSTEMS: CONSTITUTIONAL: No night sweats. No fatigue, malaise, lethargy. No fever or chills. HEENT: Eyes: No visual changes. No eye pain. No eye discharge. ENT: No runny nose. No epistaxis. No sinus pain. No sore throat. No odynophagia. No congestion. RESPIRATORY: Mild cough, Congestion. No hemoptysis. Shortness of breath. CARDIOVASCULAR: No angina symptoms. No CHF symptoms. No atypical chest pain for CAD. No palpitations. No orthopnea. GASTROINTESTINAL: No abdominal pain. No nausea or vomiting. No diarrhea or constipation. No hematemesis. No hematochezia. GENITOURINARY: No urgency. No frequency. No dysuria. No hematuria. No obstructive symptoms. No discharge. No pain. No significant abnormal bleeding. MUSCULOSKELETAL: No musculoskeletal pain; no joint swelling. Generalized arthritic pain. NEUROLOGICAL: No headache. No neck pain. No syncope. No seizures. No dizziness. PSYCHIATRIC: Not anxious. No depression. No suicidal thoughts. No homicidal thoughts. SKIN: No rash. No lesions. No wounds. ENDOCRINE: No unexplained weight loss. No weight gain. HEMATOLOGIC/LYMPHATIC: No anemia. No purpura. No petechiae. No prolonged or excessive bleeding. No palpable lymph nodes. PHYSICAL EXAMINATION: GENERAL: The patient is oriented to time, place and person, hard of hearing. HEENT: Head normocephalic, atraumatic. Eyes: Extraocular muscles are intact. Pupils are equal, round and reactive to light and accommodation. Ears: No lesions. Nose appeared normal. Throat: No exudate or erythema. NECK: Supple. No JVD, no carotid bruit. No lymphadenopathy or thyromegaly. LUNGS: Decreased breath sounds with bilateral wheeze. Clear to auscultation. Percussion note normal. Chest symmetrical. HEART: S1, S2, no S3. No murmurs. No cyanosis or clubbing. No ascites. Pulses: Dorsalis pedis and posterior tibial pulses +1 to +2 both sides. ABDOMEN: Soft. Nontender. Bowel sounds active. No CVA tenderness. No mass felt. EXTREMITIES: No edema. Full range of motion of all extremities, equal. NEUROLOGIC: No focal deficit. Cranial nerves II through XII are grossly intact. No headache, no double vision or headache. SKIN: Not dry. Intact. Turgor - normal. LYMPHATIC: No palpable lymph nodes/no lymphedema. MUSCULOSKELETAL: Normal joints with no swelling. Muscle tone is normal. ASSESSMENT: 1. Respiratory status stable with history of respiratory failure 2. Severe chronic lung disease with heavy smoking 3. Multifocal atrial tachycardia/ atrial fibrillation, under control now with Cardizem 60mg twice a day 4. Systolic BP is more than 120 CONDITION: Stable. TIME SPENT: More than 30 minutes. Plan and coordination of the patient's care discussed in the presence of nurse. PRITI
--- NOTE | 2017-11-12 15:01 | PN ---
DATE OF SERVICE: 11/10/17 SUBJECTIVE: 82 year old white male hospitalized with pneumonia and now the patient's problem is rhythm. The patient still has tachy arrhythmia with rate of 100 per minute but has multifocal atrial tachycardia related to the severe chronic lung disease. REVIEW OF SYSTEMS: CONSTITUTIONAL: No night sweats. Fatigue. No fever or chills. Not feeling good. HEENT: Eyes: No visual changes. No eye pain. No eye discharge. ENT: No runny nose. No epistaxis. No sinus pain. No sore throat. No odynophagia. No congestion. RESPIRATORY: No cough, no congestion. No hemoptysis. No shortness of breath. CARDIOVASCULAR: No angina symptoms. No CHF symptoms. No atypical chest pain for CAD. No palpitations. No orthopnea. GASTROINTESTINAL: No abdominal pain. No nausea or vomiting. No diarrhea or constipation. No hematemesis. No hematochezia. GENITOURINARY: No urgency. No frequency. No dysuria. No hematuria. No obstructive symptoms. No discharge. No pain. No significant abnormal bleeding. MUSCULOSKELETAL: No musculoskeletal pain; no joint swelling. NEUROLOGICAL: No headache. No neck pain. No syncope. No seizures. No dizziness. PSYCHIATRIC: Not anxious. No depression. No suicidal thoughts. No homicidal thoughts. SKIN: No rash. No lesions. No wounds. ENDOCRINE: No unexplained weight loss. No weight gain. HEMATOLOGIC/LYMPHATIC: No anemia. No purpura. No petechiae. No prolonged or excessive bleeding. No palpable lymph nodes. PHYSICAL EXAMINATION: GENERAL: The patient is oriented to time, place and person. VITAL SIGNS: Temperature 97.9, pulse 85, respiratory rate 25, blood pressure 140/76 and pulse ox 96% with 2 liters. HEENT: Head normocephalic, atraumatic. Eyes: Extraocular muscles are intact. Pupils are equal, round and reactive to light and accommodation. Ears: No lesions. Nose appeared normal. Throat: No exudate or erythema. NECK: Supple. No JVD, no carotid bruit. No lymphadenopathy or thyromegaly. LUNGS: Decreased breath with mild wheeze. Clear to auscultation. Percussion note normal. Chest symmetrical. HEART: S1, S2, no S3. No murmurs. Irregular. No cyanosis or clubbing. No ascites. Pulses: Dorsalis pedis and posterior tibial pulses +1 to +2 both sides. ABDOMEN: Soft. Nontender. Bowel sounds active. No CVA tenderness. No mass felt. EXTREMITIES: No edema. Full range of motion of all extremities, equal. NEUROLOGIC: No focal deficit. Cranial nerves II through XII are grossly intact. No headache, no double vision or headache. SKIN: Not dry. Intact. Turgor - normal. LYMPHATIC: No palpable lymph nodes/no lymphedema. MUSCULOSKELETAL: Normal joints with no swelling. Muscle tone is normal. ASSESSMENT: 1. Multifocal atrial tachycardia 2. Severe chronic lung disease 3. Pneumonia 4. Possibility of C of the lung PLAN: 1. Restart inhalers as patient wants Cardizem to be added 60mg twice a day 2. Continue rest of the medication including Lanoxin CONDITION: Stabilizing TIME SPENT: More than 30 minutes. Plan and coordination of the patient's care discussed in the presence of nurse. PRITI
[2017-11-12] MEDS: COUMADIN PO SCH (17:58)
[2017-11-12] MEDS: ROCEPHIN 1 GM in SODIUM CHLORIDE 50 ML IV SCH (21:10)
[2017-11-12] MEDS: ZOCOR PO SCH (21:12)
[2017-11-12] MEDS: CALMOSEPTINE OINTMENT TP SCH (23:55)
[2017-11-13] MEDS: COMBIVENT RESPIMAT INHAL SPRAY IH PRN (06:50)
--- NOTE | 2017-11-13 07:23 | ECHO2D ---
Date of Exam: 11/10/17 Ordering Physician: DR. AILEEN GABRIEL Room #: 112 Reason for Echo: ATRIAL FIBRILLATION, RESPIRATORY FAILURE M-Mode Normal Adult Results LV Dimensions Normal Adult Results AoV Opening excursions >1.6 >1.6 LVEDD-base- 3.5-5.8 3.2 Ao root dimensions 2.0-3.7 4.3 LVESD-base- 3.1-4.6 L. Atrium dimensions 1.9-3.8 3.0 Post. Wall thickness 0.8-1.1 1.2 IV septum (thickness) 0.7-1.2 1.4 Post. Wall excursion 0.72-1.3 NORMAL Septal motion NORMAL Systolic motion R. Ventricular cavity 1.5-2.0 3.0 LVEF 60% 60% Paradoxical septal wall motion YES 2-D : PARADOXICAL SEPTAL WALL, HYPERDYNAMIC RIGHT VENTRICLE AND LEFT VENTRICLE. VALVES NORMAL, ENLARGED RIGHT VENTRICLE CAVITY, NO THROMBUS, NO EFFUSION M-MODE: MV: NORMAL AV: NORMAL TV: NORMAL PV: CHAMBER SIZE: ENLARGED RIGHT VENTRICULAR CAVITY WALL MOTION: PARADOXICAL SEPTAL WALL PERICARDIUM: NORMAL INTERPRETATION: 1. LEFT VENTRICULAR HYPERTROPHY 2. 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 PARADOXICAL SEPTAL WALL 4. HYPERDYNAMIC LEFT VENTRICLE --EJECTION FRACTION 60% (SEPTAL MOTION ABNORMAL) MTDD
[2017-11-13] MEDS: CALMOSEPTINE OINTMENT TP SCH (09:00)
[2017-11-13] MEDS: LANOXIN PO SCH (10:08)
[2017-11-13] MEDS: DOXYCYCLINE HYCLATE PO SCH (10:09)
[2017-11-13] MEDS: CARDIZEM PO SCH (10:09)
[2017-11-13] MEDS: K-DUR PO SCH (10:09)
[2017-11-13] MEDS: PREDNISONE PO SCH (10:09)
--- NOTE | 2017-11-13 10:30 | PCM.PROG ---
Attending Provider: ATTENDING PROVIDER: Dr. AILEEN GABRIEL This patient is seen with Nelly Jimenez, Nurse Practitioner. DATE OF SERVICE: 11/13/17 SUBJECTIVE: This 82 year old WHITE/ M was hospitalized 11/09/17. The patient is sitting on the side of bed, alert. He has been eating well. He states he is ready to go home. Today blood pressure and heart rate have been controlled. Breathing is significantly improved. REVIEW OF SYSTEMS: CONSTITUTIONAL: Weakness. No night sweats. No malaise, lethargy. No fever or chills. HEENT: Eyes: No visual changes. No eye pain. No eye discharge. ENT: No runny nose. No epistaxis. No sinus pain. No odynophagia. No congestion. RESPIRATORY: No cough, no congestion. No hemoptysis. Shortness of breath as usual. CARDIOVASCULAR: No angina symptoms. No CHF symptoms. No atypical chest pain for CAD. No palpitations. No orthopnea.. GASTROINTESTINAL: No abdominal pain. No nausea or vomiting. No diarrhea or constipation. No hematemesis. No hematochezia. GENITOURINARY: No urgency. No frequency. No dysuria. No hematuria. No obstructive symptoms. No discharge. No pain. No significant abnormal bleeding. MUSCULOSKELETAL: No musculoskeletal pain; no joint swelling. NEUROLOGICAL: Awake, alert, oriented to time, place and person. No headache. No neck pain. No syncope. No seizures. No dizziness. PSYCHIATRIC: Not anxious. No depression. No suicidal thoughts. No homicidal thoughts. SKIN: No rash. No lesions. No wounds. ENDOCRINE: No unexplained weight loss. No weight gain. HEMATOLOGIC/LYMPHATIC: No anemia. No purpura. No petechiae. No prolonged or excessive bleeding. No palpable lymph nodes. PHYSICAL EXAMINATION: GENERAL: The patient is awake, alert and oriented, sitting in bed in no distress. VITAL SIGNS: Temperature 97.5 F, Pulse 60, Respiratory Rate 19, BP 129/70, Pulse Ox 98% HEENT: Head normocephalic, atraumatic. Eyes: Extraocular muscles are intact. Pupils are equal, round and reactive to light and accommodation. Ears: No lesions. Nose appeared normal. Throat: No exudate or erythema. NECK: Supple. No JVD, no carotid bruit. No lymphadenopathy or thyromegaly. LUNGS: Diminished breath sounds. No wheezing. Clear to auscultation. Percussion note normal. Chest symmetrical. HEART: S1, S2, no S3. No murmurs. No cyanosis or clubbing. No ascites. Pulses: Dorsalis pedis and posterior tibial pulses +1 to +2 both sides. ABDOMEN: Soft. Non-tender. Bowel sounds active. No CVA tenderness. No mass felt. EXTREMITIES: No edema. Full range of motion of all extremities, equal. NEUROLOGIC: No focal deficit. Cranial nerves II through XII are grossly intact. No headache, no double vision or headache. SKIN: Not dry. Intact. Turgor-normal. LYMPHATIC: No palpable lymph nodes/no lymphedema. MUSCULOSKELETAL: Normal joints with no swelling. Muscle tone is normal. LAB REVIEW: 11/13/17 04:15 11/13/17 04:15 11/13/17 04:15: PT 17.6 H, INR 1.79 11/13/17 04:15: Sodium 131 L, Potassium 4.2, Chloride 97 L, Carbon Dioxide 29, Anion Gap 9.2, BUN 19 H, Creatinine 0.70, Estimated GFR (MDRD) 108.00, BUN/ Creatinine Ratio 27.14, Glucose 74 L, Calcium 8.1 L, Total Bilirubin 0.3, AST 14 L, ALT 26, Alkaline Phosphatase 40 L, Total Protein 4.7 L, Albumin 2.6 L, Globulin 2.1, Albumin/Globulin Ratio 1.24 11/13/17 04:15: WBC 8.51, RBC 3.28 L, Hgb 10.2 L, Hct 29.3 L, MCV 89.3, MCH 31.1 H, MCHC 34.8, RDW Coeff of Tessa 14.5, Plt Count 239, Immature Gran % (Auto) 0.8, Neut % (Auto) 63.1, Lymph % (Auto) 20.4, [place] % (Auto) 14.2 H, Eos % (Auto ) 1.4, Baso % (Auto) 0.1, Immature Gran # (Auto) 0.1, Neut # (Auto) 5.4, Lymph # (Auto) 1.7, [place] # (Auto) 1.2, Eos # (Auto) 0.1, Baso # (Auto) 0.0 ASSESSMENT: 1. LEFT UPPER LOBE PNEUMONIA VS CHRONIC CAVITARY LESION 2. SHORTNESS OF BREATH, SEVERE, OXYGEN DEPENDENT, IMPROVED 3. HYPOKALEMIA,. RESOLVED 4. ATRIAL FIBRILLATION 5. SEVERE COPD 6. SMOKER 7. GENERALIZED WEAKNESS PLAN: 1. Discharge home 2. Continue Prednisone mg 20 daily times 5 days 3. Keflex 500 b.i.d. times 5 days Plan and coordination of the patient's care discussed in the presence of Ductfixing Plumber and nurse. CONDITION: Stable SCRIBED BY: VIRAL JOHNSON Manager [employer] scribed while in presence of service performed by Dr. Gabriel/Nelly Jimenez APRN on 11/13/17 (08)
--- NOTE | 2017-11-13 11:12 | PN ---
DATE OF SERVICE: 11/13/17 SUBJECTIVE: The patient is going to be discharged home. He was admitted to [facility] after being in the swing bed with tachy arrhythmias, now is in sinus rhythm, multifocal atrial PACs. The patient is on Cardizem successfully controlling his rate 60 twice a day. He will also be on antibiotics and steroids. He has end- stage chronic lung disease with possibility of CA of the lung. He still again refuses to go back to pulmonary physician. He wants care only provided by me. He will be discharged home under Home Health. The patient was seen and examined with nurse practitioner. CONDITION: Stable. TIME SPENT: More than 30 minutes. Plan and coordination of the patient's care discussed in the presence of nurse. PRITI
--- NOTE | 2017-11-13 11:15 | PN ---
BILLING: ADMISSION DAY LEVEL 5 --- 11/05/17 11/06/17 INTERMEDIATE 11/07/17 INTERMEDIATE 11/08/17 INTERMEDIATE 11/09/17 INTERMEDIATE - ADMITTED TO SWING 11/10/17 INTERMEDIATE 11/11/17 INTERMEDIATE 11/12/17 INTERMEDIATE 11/13/17 DISCHARGE MTDD
[2017-11-13 13:50] VITALS: BP 148/84; TEMP 98.8
--- NOTE | 2017-11-13 15:51 | CM.DICTOOL ---
ADMISSION: 11/09/17 15:29 DISCHARGE: 11/23/17 DATE OF SERVICE: 11/13/17 FINAL DIAGNOSIS ATRIAL FIBRILLATION PNEUMONIA, LEFT UPPER LOBE VS CHRONIC CAVITARY LESION HYPOKALEMIA, RESOLVED GENERALIZED WEAKNESS CAD AND WI, 04/23 LEFT UPPER LOBE MASS (DR. 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 OROZCO SLEEP APNEA PARTIAL RIGHT PNEUMONECTOMY R/T FUNGAL INFECTION CURRENT EVERY DAY SMOKER LAST VITALS Temp Pulse Resp BP Pulse Ox 98.0 F 88 12 147/73 H 99 11/13/17 09:37 11/13/17 10:08 11/13/17 09:37 11/13/17 09:37 11/13/17 09:37 TAKE THESE MEDICATIONS AT HOME Albuterol Sulfate 2.5 mg NEB DAILY Albuterol/Ipratropium (Combivent Respimat Inhal [place]) 1 spray IH QID PRN PRN Reason: Bronchospasm Last Admin: 11/13/17 06:50 Dose: 1 spray Arformoterol Tartrate )[place]) 1 Vial NEB RTBID Budesonide 0.25 mg IH BID Digoxin (Lanoxin) 125 mcg PO DAILY [facility] Last Admin: 11/13/17 10:08 Dose: 125 mcg Diltiazem HCl (Cardizem) 60 mg PO Q12HR [facility] Last Admin: 11/13/17 10:09 Dose: 60 mg Lorazepam (Ativan) 0.5 mg PO BID PRN PRN Reason: ANXIETY Last Admin: 11/12/17 23:54 Dose: 0.5 mg Nitroglycerin (Nitrostat) 0.4 mg SL Q5MIN X 3 DOSES PRN PRN Reason: Chest Pain Prednisone (Prednisone) 20 mg PO DAILYWM X 5 DAYS [facility] Last Admin: 11/13/17 10:09 Dose: 20 mg Simvastatin (Zocor) 40 mg PO BEDTIME [facility] Last Admin: 11/12/17 21:12 Dose: 40 mg Tramadol HCl (Ultram) 50 mg PO Q6H PRN PRN Reason: Analgesia Warfarin Sodium (Coumadin) 2 mg PO QPM [facility] Last Admin: 11/12/17 17:58 Dose: 2 mg ALLERGIES Iodinated Contrast- Oral and IV Dye [Iodinated Contrast Media - IV Dye] Adverse Reaction (Verified 11/02/17 00:35) shellfish derived Adverse Reaction (Verified 11/02/17 00:35) NEW PRESCRIPTIONS: Cephalexin [Keflex] 500 mg PO BID #10 capsule 11/13/17 Diltiazem HCl [Cardizem] 60 mg PO Q12HR #60 tablet 11/13/17 Prednisone 20 mg PO DAILYWM #5 tablet 11/13/17 Warfarin Sodium [Coumadin] 2 mg PO QPM #30 tablet 11/13/17 SMOKING: CURRENT EVERY DAY SMOKER THE PATIENT HAS RECEIVED INFORMATION/TEACHING REGARDING COMPLETE CESSATION OF SMOKING. HE UNDERSTANDS THE ADDED RISK TO HIS CARDIOVASCULAR AND PULMONARY HEALTH WITH NONCOMPLIANCE. HE ALSO IS AWARE OF THE BENEFITS OF COMPLETE CESSATION. HE HAS NOT VERBALIZED HIS INTENT TO STOP OR CUT DOWN THE AMOUNT. WE WILL CONTINUE TO PROVIDE EDUCATION/INFORMATION AND ENCOURAGEMENT FOR COMPLETE CESSATION. DISEASE SPECIFIC EDUCATION: PNEUMONIA ATRIAL FIBRILLATION HYPOKALEMIA WEAKNESS HOME MEDICATIONS AND CHANGES MADE NEW PRESCRIPTIONS ADVERSE EFFECTS POSSIBLE WITH LONG-TERM USE OF STEROIDS HOME HEALTH FOLLOW UP LAB REVIEW: 11/13/17 04:15 11/13/17 04:15 11/13/17 04:15: PT 17.6 H, INR 1.79 11/13/17 04:15: Sodium 131 L, Potassium 4.2, Chloride 97 L, Carbon Dioxide 29, Anion Gap 9.2, BUN 19 H, Creatinine 0.70, Estimated GFR (MDRD) 108.00, BUN/ Creatinine Ratio 27.14, Glucose 74 L, Calcium 8.1 L, Total Bilirubin 0.3, AST 14 L, ALT 26, Alkaline Phosphatase 40 L, Total Protein 4.7 L, Albumin 2.6 L, Globulin 2.1, Albumin/Globulin Ratio 1.24 11/13/17 04:15: WBC 8.51, RBC 3.28 L, Hgb 10.2 L, Hct 29.3 L, MCV 89.3, MCH 31.1 H, MCHC 34.8, RDW Coeff of Tessa 14.5, Plt Count 239, Immature Gran % (Auto) 0.8, Neut % (Auto) 63.1, Lymph % (Auto) 20.4, [place] % (Auto) 14.2 H, Eos % (Auto ) 1.4, Baso % (Auto) 0.1, Immature Gran # (Auto) 0.1, Neut # (Auto) 5.4, Lymph # (Auto) 1.7, [place] # (Auto) 1.2, Eos # (Auto) 0.1, Baso # (Auto) 0.0 PLAN: DISCHARGE HOME TODAY RETURN TO SEE DR. GABRIEL IN HIS OFFICE ON 11/19/17 AT 2:45 P.M. RESIDENTIAL [facility] FROM [place], [place] WILL PHONE YOU AT HOME TO ARRANGE SERVICES FOR SERVICES: --NURSING (GENERAL ASSESSMENT, MEDICATION COMPLIANCE) --PHYSICAL THERAPY AND OCCUPATIONAL THERAPY FOR STRENGTHENING, GAIT TRAINING AND ENERGY CONSERVATION MEASURES RESUME YOUR HOME MEDICATIONS PER LIST PROVIDED BY THE NURSING STAFF PLEASE NOTE THE REDUCTION IN YOUR COUMADIN TO 2 MG BY MOUTH EVERY EVENING DO NOT TAKE YOUR LOSARTAN/HYDROCHLOROTHIAZIDE (HYZAAR) NEW PRESCRIPTIONS COUMADIN 2 MG, TAKE ONE TABLET BY MOUTH EVERY EVENING AT 5 PM DILTIAZEM HCL (CARDIZEM) 60 MG, TAKE ONE TABLET BY MOUTH TWICE DAILY PREDNISONE 20 MG, TAKE ONE TABLET BY MOUTH DAILY WITH FOOD FOR 5 DAYS KEFLEX 500 MG, TAKE ONE TABLET BY MOUTH TWICE DAILY FOR 5 DAYS ACTIVITY GET PLENTY OF REST AT HOME. GRADUALLY INCREASE YOUR ACTIVITY LEVEL ACCORDING TO YOUR TOLERATION DIET REGULAR TOLERATED SUMMARY THE PATIENT IS ALERT AND ORIENTED X3. HE CURRENTLY RESIDES AT HOME WITH HIS SPOUSE. HIS GRAND-DAUGHTER IS SUPPORTIVE OF HIS NEEDS WHEN NECESSARY. THE PATIENT HAS A CANE, ROLLING WALKER, HOME OXYGEN, A NEBULIZER, HOMEMAKER AND HAD BEEN GOING TO [facility] FOR THE NOON MEAL. THERE WAS SOME QUESTION PRESENTED BY THE [id number] ABOUT THE PATIENT GOING TO A SKILLED NURSING AT DISCHARGE. HE IS VERY CLEAR ABOUT NOT WANTING TO BE DISCHARGED TO THE SKILLED NURSING. HE WILL BE DISCHARGED HOME WITH ASSISTANCE FROM [facility]. HE WILL RECEIVE NURSING SERVICES, GENERALIZED ASSESSMENT AND PHYSICAL THERAPY/OCCUPATIONAL THERAPY TO PROVIDE GAIT TRAINING, STRENGTHENING, ENERGY CONSERVATION METHODS IN THE HOME ENVIRONMENT. HIS SKIN TURGOR IS INTACT AND WITHOUT DECUBITUS ULCERS AT DISCHARGE. HYDRATION AND NUTRITIONAL STATUS ARE BOTH IMPROVED. HE IS AGREEABLE FOR THIS DISCHARGE TODAY AND WILL FOLLOW UP INSTRUCTED. CURRENT CODE STATUS DO NOT INTUBATE, CPR ONLY JAIME SMITH, ANALYTIC PROGRAMMER AILEEN GABRIEL M.D.
--- NOTE | 2017-11-14 14:22 | DS ---
DATE OF SERVICE: 11/13/17 FINAL DIAGNOSIS: 1. ATRIAL FIBRILLATION 2. PNEUMONIA, LEFT UPPER LOBE VS CHRONIC CAVITARY LESION 3. HYPOKALEMIA, RESOLVED 4. GENERALIZED WEAKNESS 5. 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 LEFT UPPER LOBE MASS (DR. GRIGSBY) 7. 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 COPD, SEVERE, OXYGEN DEPENDENT 9. HYPERTENSION 10. LEFT VENTRICULAR HYPERTROPHY 11. PROSTATE CANCER, DR. OROZCO 12. SLEEP APNEA 13. PARTIAL RIGHT PNEUMONECTOMY R/T FUNGAL INFECTION 14. CURRENT EVERY DAY SMOKER DISCHARGE INSTRUCTIONS: Followup appointment with Dr. Rockwell in his office on 11/19/17 at 2:[address] [facility] from [place], [place] will phone you at home to arrange services for services: Nursing (general assessment, medication compliance). Physical Therapy and Occupational Therapy for strengthening, gait training and energy conservation measures. MEDICATIONS AT DISCHARGE: Budesonide 0.25 mg IH b.i.d. Brovana one vial NEB RT b.i.d. Albuterol 2.5 mg NEB daily Tramadol (Ultram) 50 mg p.o. q.6h p.r.n. Ipratropium/Albuterol one inh IH q.i.d. p.r.n. Digoxin (Lanoxin) 0.5 tab p.o. daily Simvastatin (Zocor) 40 mg p.o. bedtime Nitrostat 0.4 mg SL q.5 min times three doses p.r.n. Ativan 0.5 mg p.o. daily p.r.n. NEW PRESCRIPTIONS: Coumadin 2 mg take one tablet by mouth every evening at 5 p.m. Diltiazem (Cardizem) 60 mg take one tablet by mouth twice daily Prednisone 20 mg take one tablet by mouth daily wth food for 5 days Keflex 500 mg take one tablet by mouth twice daily for 5 days DIET INSTRUCTIONS: Regular as tolerated. ACTIVITY: Get plenty of rest at home. Gradually increase your activity level according to your toleration. SMOKING: Current every day smoker. DISEASE SPECIFIC EDUCATION: Pneumonia Atrial fibrillation Hypokalemia Weakness Home medications and changes made New prescriptions Adverse effects possible with long-term use of steroids Home Health Follow up HOSPITAL COURSE: This is an 82-year-old white male who was initially admitted to acute care under Dr. Knowles for COPD exacerbation, questionable left upper cavitary lesion vs pneumonia. He was treated for this, placed on swing bed for IV antibiotics, PT and OT due to generalized weakness from severe COPD. He has a history of atrial fibrillation but developed a rapid ventricular rate which was uncontrolled and had to be placed on a Cardizem drip. He was switched back to acute care and admitted under Dr. Rockwell on 11/09. He has a long history of atrial fibrillation however this had been previously controlled. It is thought to be a combination of his worsening chronic lung disease as well as medications that he developed rapid ventricular rate into the 160s and 70s. He was given IV doses of Digoxin at 0.25 and 0.125, both of which only temporarily affected his rate and decreasing it. He was given 5 mg of Cardizem IV push, placed on Cardizem 60 b.i.d. and then started on 15 mg/hr Cardizem drip. After 24 hours on this drip, his heart rate did become controlled and has been controlled for the past 48 hours at 60. He was weaned off the Cardizem drip and now is only on Cardizem 60 b.i.d. along with Digoxin 0.125 mcg daily. He had originally been on Doxycycline IV 100 mg b.i.d. On day of admission, this was switched to p.o. He has still been on Rocephin 1 gm IV daily and we have changed this. He will go home to Keflex 500 mg b.i.d. for the next five days as well as Prednisone 20 mg daily for the next five days. He was already oxygen dependent and has oxygen at home. He was already on Coumadin for his atrial fibrillation. INR 1.7 at discharge. He did have some hypercoagulation with INRs in the 4's. He was on 3 mg daily, now is on 2. His Losartan was discontinued due to controlled blood pressure and the addition of Cardizem to control the rate so his blood pressure is normal at 129/70 and he will go home with Cardizem 60 mg b.i.d. We will give him a prescription for Xopenex inhalation medication rather than Albuterol neb treatment in order to no longer affect the heart rate. On examination his lung sounds have significantly improved. His oxygen saturation has been 98% on 2L. He has been eating well, up and about on his own with use of a walker. Again, his wheezing has significantly improved. The pneumonia vs cavitary lesion, he has had this lesion for quite some time, the left upper lobe and it has been enlarging. He has refused for the past year or so to continue to see pulmonology and he continues to refuse as he states he will not do anything such as any biopsies or any treatment if it were to be malignant. The patient demonstrates understanding. He does need Home Health so we will send him home with residential Home Health and we will followup with him in the office. TIME SPENT: More than 60 minutes. PRITI
== END 2017-11-13 17:23 | disposition home or self-care (01) | DRG 308 ==
LOC: MEDSURG B 15:29
PROVIDERS: ADMIT Internal Medicine; ATTEND Internal Medicine
DX: I47.1 Supraventricular tachycardia (principal); J18.0 Bronchopneumonia, unspecified organism; J44.1 Chronic obstructive pulmonary disease with (acute) exacerbation; I71.2 Thoracic aortic aneurysm, without rupture; I10 Essential (primary) hypertension; M19.90 Unspecified osteoarthritis, unspecified site; M40.209 Unspecified kyphosis, site unspecified; R91.1 Solitary pulmonary nodule; R53.1 Weakness; R06.02 Shortness of breath; G47.30 Sleep apnea, unspecified; F17.210 Nicotine dependence, cigarettes, uncomplicated; E78.5 Hyperlipidemia, unspecified; E87.6 Hypokalemia; Z99.81 Dependence on supplemental oxygen; Z72.0 Tobacco use
CPT/HCPCS: 36415; 80053; 85025; 85610; 93005; 93010; 94640